=== PATIENT | female | born 1960 | race African-American/Black ===

== ENCOUNTER 2016-09-27 11:42 | Emergency (ER) | payer BC, OTHER ==
--- NOTE | 2016-09-27 13:24 | RAD ---
EXAM: RIGHT SHOULDER 3 VIEWS: HISTORY: Pain. COMPARISON: None. FINDINGS: Glenohumeral joint space is preserved. Increased density projecting over the rotator cuff tendon in sertion site. Correlate for calcification of the rotator cuff. Visualized right ribs are unremarka ble. IMPRESSION: Chronic changes. POS: [facility]
== END 2016-09-27 13:15 | disposition home or self-care (01) ==
LOC: MADERS 11:42
DX: M75.31 Calcific tendinitis of right shoulder (principal); E78.5 Hyperlipidemia, unspecified; E78.00 Pure hypercholesterolemia, unspecified; I10 Essential (primary) hypertension; E11.9 Type 2 diabetes mellitus without complications; E66.9 Obesity, unspecified; Z79.82 Long term (current) use of aspirin; Z79.899 Other long term (current) drug therapy
CPT/HCPCS: 99283

== ENCOUNTER 2017-04-01 12:13 | Emergency (ER) | payer BC ==
[2017-04-01] MEDS ORDERED: traMADol HCl 50 MG TAB ONE (12:57)
== END 2017-04-01 14:07 | disposition home or self-care (01) ==
LOC: MADERS 12:13
DX: I10 Essential (primary) hypertension (principal); E66.01 Morbid (severe) obesity due to excess calories; E11.9 Type 2 diabetes mellitus without complications; Z79.4 Long term (current) use of insulin; Z79.82 Long term (current) use of aspirin; Z79.899 Other long term (current) drug therapy
CPT/HCPCS: 99283

== ENCOUNTER 2018-05-24 22:42 | Emergency (ER) | payer BC ==
[2018-05-24] MEDS ORDERED: Cephalexin 500 MG CAP ONE (23:17)
== END 2018-05-24 23:25 | disposition home or self-care (01) ==
LOC: MADERS 22:42
DX: L30.9 Dermatitis, unspecified (principal); E11.9 Type 2 diabetes mellitus without complications; E66.9 Obesity, unspecified; I10 Essential (primary) hypertension; Z79.899 Other long term (current) drug therapy
CPT/HCPCS: 99282

== ENCOUNTER 2018-06-28 18:44 | Emergency (ER) | payer BC ==
--- NOTE | 2018-06-28 19:36 | RAD ---
RADIOGRAPH LEFT FOREARM 2 VIEWS: 06/28/18 HISTORY: 57-year-old female with traumatic forearm pain after fall. FINDINGS: There is no fracture of the radius or ulna. IMPRESSION: Negative. POS: [facility]
--- NOTE | 2018-06-28 20:34 | RAD ---
RADIOGRAPH LEFT WRIST THREE VIEWS: 06/28/18 HISTORY: 57-year-old female with traumatic left wrist pain after fall. FINDINGS: No fracture is identified. If there is snuff box tenderness that suggests an occult scaphoid fracture , then the general recommendation is immobilization and followup imaging in 5 to 10 days. Alignment i s normal. Bony excrescence arising from the dorsum of proximal carpal row, incompletely imaged. IMPRESSION: No fracture identified. POS: [facility]
== END 2018-06-28 19:42 | disposition home or self-care (01) ==
LOC: MADERS 18:44
DX: S63.502A Unspecified sprain of left wrist, initial encounter (principal); I10 Essential (primary) hypertension; E78.00 Pure hypercholesterolemia, unspecified; E66.9 Obesity, unspecified; Z79.899 Other long term (current) drug therapy; W01.0XXA Fall on same level from slipping, tripping and stumbling without subsequent striking against object, initial encounter

== ENCOUNTER 2018-08-20 17:05 | Emergency (ER) | payer BC ==
[~2018-08-20 17:05] MED LIST: cloNIDine 0.1 MG TAB ONE
--- NOTE | 2018-08-20 18:57 | RAD ---
RIGHT HAND THREE VIEWS: 08/20/18 INDICATION: Right hand pain. FINDINGS: No acute fracture or subluxation is evident. No radiopaque foreign body is noted. IMPRESSION: No acute osseous abnormality. POS: [facility]
== END 2018-08-20 20:23 | disposition home or self-care (01) ==
LOC: MADERS 17:05
DX: S66.911A Strain of unspecified muscle, fascia and tendon at wrist and hand level, right hand, initial encounter (principal); S76.111A Strain of right quadriceps muscle, fascia and tendon, initial encounter; I10 Essential (primary) hypertension; E78.00 Pure hypercholesterolemia, unspecified; E11.9 Type 2 diabetes mellitus without complications; E66.9 Obesity, unspecified; Z79.4 Long term (current) use of insulin; Z79.899 Other long term (current) drug therapy; V89.9XXA Person injured in unspecified vehicle accident, initial encounter

== ENCOUNTER 2018-10-17 18:35 | Emergency (ER) | payer BC ==
[2018-10-17] MEDS ORDERED: Enoxaparin Sodium 60 MG/0.6 ML SYRINGE ONE (19:09)
[2018-10-17] MEDS ORDERED: Enoxaparin Sodium 80 MG/0.8 ML SYRINGE ONE (19:09)
[2018-10-17] MEDS ORDERED: Enoxaparin Sodium 30 MG/0.3 ML SYRINGE ONE (19:09)
[2018-10-17] MEDS ORDERED: Sodium Chloride 0.9% 100 ML ONE (19:10)
[2018-10-17] MEDS ORDERED: Piperacillin/Tazobactam 3.375 GM VIAL ONE (19:10)
[2018-10-17 19:13] LABS: Bilirubin Moderate (Negative); Blood, Urine Negative (Negative); Clarity Slightly Cloudy (Clear); Glucose, Urine (Dipstick) Negative (Negative); Leukocyte Negative (Negative); Nitrite Negative (Negative); Protein, Urine (Dipstick) 100 mg/dL (Neg-Trace); Specific Gravity, Urine 1.025 (1.005-1.030); Urobilinogen > or = 8.0 mg/dL (0.2-1.0)
[2018-10-17 19:19] LABS: Prothrombin Time 13.2 SEC (12.0-14.7)
[2018-10-17 19:20] LABS: PTT 28.1 SEC (22.9-36.1)
[2018-10-17 19:30] LABS: ALT (SGPT) 28 U/L (8-55); AST (SGOT) 30 U/L (5-34); Albumin 3.5 g/dL (3.5-5.0); Alkaline Phosphatase 117 U/L (40-150); Anion Gap 14 mmol/L (10-20); BUN (Urea Nitrogen) 19 mg/dL (9.8-20.1); Bilirubin, Total 1.2 mg/dL (0.2-1.2); Calc. Creatinine Clearance 0 mL/min (70-130); Calcium 9.8 mg/dL (7.8-10.44); Carbon Dioxide 27 mmol/L (22-29); Chloride 105 mmol/L (98-107); Estimated GFR-MDRD 83; Globulin 4.6 g/dL (2.4-3.5); Glucose 181 mg/dL (70-105); Potassium 4.1 mmol/L (3.5-5.1); Protein, Total 8.1 g/dL (6.0-8.3); Sodium 142 mmol/L (136-145)
[2018-10-17 19:31] LABS: Bacteria/HPF Rare-Few HPF (None Seen); RBC/HPF 0-3 HPF (0-3); WBC/HPF 0-3 HPF (0-3)
[2018-10-17 19:35] LABS: #Basophils 0.1 thou/uL (0.0-0.2); #Eosinphils 0.1 thou/uL (0.0-0.7); #Lymphocytes 2.3 thou/uL (1.20-3.40); #Monocytes 0.9 thou/uL (0.11-0.59); #Neutrophils 10.3 thou/uL (1.40-6.50); %Basophils 0.6 % (0.0-1.0); %Lymphocytes 16.8 % (21.0-51.0); %Monocytes 6.2 % (0.0-10.0); %Neutrophils 75.4 % (42.0-75.0); Anisocytosis SLIGHT = 6-15 cells (100X) (0-5/hpf); Hemoglobin 12.2 g/dL (12.0-16.0); Hypochromia SLIGHT = 6-15 cells (100X) (0-5/hpf); MDiff Complete? YES; Mean Corpuscular HGB CONC 30.1 g/dL (32.0-36.0); Mean Corpuscular Hemoglobin 23.7 pg (27.0-31.0); Mean Corpuscular Volume 78.9 fL (78.0-98.0); Mean Platelet Volume 11.2 fL (7.4-10.4); Platelet Count 168 thou/uL (130-400); Platelet Morphology Comment Appears Adequate; RBC Distribution Width 15.4 % (11.5-14.5); Red Blood Cell (RBC) Count 5.14 mill/uL (4.20-5.40); White Blood Cell (WBC) Count 13.7 thou/uL (4.8-10.8)
[2018-10-17] MEDS ORDERED: Sodium Chloride 0.9% 250 ML 250 ML ONE (19:49)
== END 2018-10-17 20:42 | disposition short-term general hospital (02) ==
LOC: MADERS 18:35
DX: L03.115 Cellulitis of right lower limb (principal); E11.9 Type 2 diabetes mellitus without complications; I10 Essential (primary) hypertension; E66.9 Obesity, unspecified; Z79.899 Other long term (current) drug therapy; Z79.4 Long term (current) use of insulin; Z79.01 Long term (current) use of anticoagulants
CPT/HCPCS: 36415; 80053; 81003; 81015; 83605; 85025; 85610; 85730; 87040; 96365; 96372; 96375; J1650; J2543; J3370; J3490; J7050

== ENCOUNTER 2020-03-16 14:24 | Emergency (ER) | payer SELFPAY ==
[2020-03-16] MEDS ORDERED: Sodium Chloride 0.9% 100 ML ONE (15:36)
[2020-03-16] MEDS ORDERED: cefTRIAXone\\ROCEPHIN 2 GM VIAL ONE (15:36)
[2020-03-16] MEDS ORDERED: Sodium Chloride 0.9% 250 ML 250 ML ONE (15:36)
[2020-03-16] MEDS ORDERED: Ibuprofen 400 MG TAB ONE (15:36)
[2020-03-16 15:46] LABS: Bilirubin Small (Negative); Blood, Urine Trace (Negative); Clarity Slightly Cloudy (Clear); Glucose, Urine (Dipstick) Negative (Negative); Ketone, Urine Negative (Negative); Leukocyte Negative (Negative); Nitrite Negative (Negative); Protein, Urine (Dipstick) 30 mg/dL (Neg-Trace); Specific Gravity, Urine 1.015 (1.005-1.030); Urobilinogen > or = 8.0 mg/dL (Less than 2); pH, Urine 7.5 (5.0-9.0)
[2020-03-16 15:49] LABS: ALT (SGPT) 22 U/L (8-55); AST (SGOT) 22 U/L (5-34); Albumin 3.6 g/dL (3.5-5.0); Alkaline Phosphatase 104 U/L (40-110); Anion Gap 18 mmol/L (10-20); BUN (Urea Nitrogen) 15 mg/dL (9.8-20.1); Bilirubin, Total 1.4 mg/dL (0.2-1.2); Calc. Creatinine Clearance 0 mL/min (70-130); Carbon Dioxide 28 mmol/L (22-29); Chloride 101 mmol/L (98-107); Estimated GFR-MDRD 72; Globulin 4.3 g/dL (2.4-3.5); Glucose 130 mg/dL (70-105); Potassium 3.7 mmol/L (3.5-5.1); Protein, Total 7.9 g/dL (6.0-8.3); Sodium 143 mmol/L (136-145)
[2020-03-16 15:52] LABS: Anisocytosis SLIGHT = 6-15 cells (100X) (0-5/hpf); Band 25 % (5-11); Hemoglobin 12.1 g/dL (12.0-16.0); Hypochromia MODERATE=16-30 cells (100X) (0-5/hpf); Lymphocytes 2 % (21-51); MDiff Complete? YES; Mean Corpuscular HGB CONC 29.4 g/dL (32.0-36.0); Mean Corpuscular Hemoglobin 23.5 pg (27.0-31.0); Mean Corpuscular Volume 79.8 fL (78.0-98.0); Mean Platelet Volume 10.8 fL (7.4-10.4); Monocytes 2 % (0-10); Neutrophil 71 % (42-75); Platelet Count 213 thou/uL (130-400); Platelet Morphology Comment Appears Adequate; RBC Distribution Width 15.5 % (11.5-14.5); Red Blood Cell (RBC) Count 5.15 mill/uL (4.20-5.40); White Blood Cell (WBC) Count 33.3 thou/uL (4.8-10.8)
[2020-03-16 15:55] LABS: Bacteria/HPF 1+ HPF (None Seen); RBC/HPF 0-3 HPF (0-3); WBC/HPF 0-3 HPF (0-3)
[2020-03-16] MEDS ORDERED: Sodium Chloride 0.9% 1,000 ML ONE (15:55)
--- NOTE | 2020-03-16 16:03 | RAD ---
PA AND LATERAL CHEST: 03/16/20 HISTORY: Cough, fever. Heart size is enlarged. There are atherosclerotic changes of the aorta. The lungs are clear of any fo jaja infiltrative process. Subtle ground glass infiltrates would be difficult to exclude in this patie nt. IMPRESSION: Cardiomegaly. No definite acute process. POS: [facility]
[2020-03-16 16:18] LABS: CKMB 2.5 ng/mL (0-6.6)
[2020-03-16] MEDS ORDERED: Aspirin Chewable 81 MG TAB ONE (16:25)
== END 2020-03-16 17:20 | disposition short-term general hospital (02) ==
LOC: MADERS 14:24
DX: A41.9 Sepsis, unspecified organism (principal); R65.20 Severe sepsis without septic shock; R79.89 Other specified abnormal findings of blood chemistry; R60.0 Localized edema; E11.9 Type 2 diabetes mellitus without complications; E78.5 Hyperlipidemia, unspecified; E78.00 Pure hypercholesterolemia, unspecified; E66.9 Obesity, unspecified; I10 Essential (primary) hypertension; Z79.4 Long term (current) use of insulin; Z79.82 Long term (current) use of aspirin; Z79.899 Other long term (current) drug therapy; W17.89XA Other fall from one level to another, initial encounter
CPT/HCPCS: 36416; 71046; 80053; 81003; 81015; 82553; 83605; 84443; 84484; 85025; 87040; 93005; 96361; 96365; 36415-59; J0696; J3370; J3490; J7050

== ENCOUNTER 2020-10-05 19:28 | Emergency (ER) | payer OTHER, SELFPAY | END 2020-10-05 20:00 | disposition home or self-care (01) | LOC: MADERS 19:28 | DX: M25.551 Pain in right hip (principal); M79.10 Myalgia, unspecified site; M79.651 Pain in right thigh; E11.9 Type 2 diabetes mellitus without complications; E78.5 Hyperlipidemia, unspecified; E78.00 Pure hypercholesterolemia, unspecified; I10 Essential (primary) hypertension; Z79.899 Other long term (current) drug therapy; Z79.4 Long term (current) use of insulin; Z79.82 Long term (current) use of aspirin | CPT/HCPCS: 99283 ==

== ENCOUNTER 2021-10-09 18:50 | Emergency (ER) | payer BC, SELFPAY ==
[2021-10-09] MEDS ORDERED: Nitroglycerin 0.4 MG TAB 1 EACH ONE (19:29)
[2021-10-09] MEDS ORDERED: Aspirin Chewable 81 MG TAB ONE (19:29)
[2021-10-09 20:11] LABS: #Basophils 0.1 thou/uL (0.0-0.2); #Eosinphils 0.2 thou/uL (0.0-0.7); #Monocytes 0.5 thou/uL (0.11-0.59); #Neutrophils 7.7 thou/uL (1.40-6.50); %Basophils 0.6 % (0.0-1.0); %Eosinophils 2.1 % (0.0-10.0); %Lymphocytes 26.1 % (21.0-51.0); %Monocytes 4.5 % (0.0-10.0); %Neutrophils 66.7 % (42.0-75.0); Hemoglobin 12.4 g/dL (12.0-16.0); Hypochromia SLIGHT = 6-15 cells (100X) (0-5/hpf); Large Platelets SLIGHT; MDiff Complete? YES; Mean Corpuscular HGB CONC 29.8 g/dL (32.0-36.0); Mean Corpuscular Hemoglobin 23.8 pg (27.0-31.0); Mean Corpuscular Volume 79.9 fL (78.0-98.0); Mean Platelet Volume 12.8 fL (7.4-10.4); Microcytosis SLIGHT = 6-15 cells (100X) (0-5/hpf); Platelet Count 191 thou/uL (130-400); Platelet Morphology Comment Appears Adequate; RBC Distribution Width 15.6 % (11.5-14.5); Red Blood Cell (RBC) Count 5.21 mill/uL (4.20-5.40); White Blood Cell (WBC) Count 11.6 thou/uL (4.8-10.8)
[2021-10-09 20:18] LABS: ALT (SGPT) 11 U/L (8-55); AST (SGOT) 14 U/L (5-34); Albumin 3.8 g/dL (3.5-5.0); Alkaline Phosphatase 132 U/L (40-110); Anion Gap 20 mmol/L (10-20); BUN (Urea Nitrogen) 14 mg/dL (9.8-20.1); Bilirubin, Total 0.5 mg/dL (0.2-1.2); Calc. Creatinine Clearance 0 mL/min (70-130); Calcium 8.8 mg/dL (7.8-10.44); Carbon Dioxide 26 mmol/L (22-29); Chloride 104 mmol/L (98-107); Globulin 4.2 g/dL (2.4-3.5); Glucose 124 mg/dL (70-105); Potassium 3.7 mmol/L (3.5-5.1); Sodium 146 mmol/L (136-145)
[2021-10-09] MEDS ORDERED: Enoxaparin Sodium 100 MG/ML SYRINGE ONE (20:28)
[2021-10-09 20:35] LABS: CKMB 2.2 ng/mL (0-6.6)
== END 2021-10-09 22:19 | disposition short-term general hospital (02) ==
LOC: MADERS 18:50
DX: I24.9 Acute ischemic heart disease, unspecified (principal); E11.42 Type 2 diabetes mellitus with diabetic polyneuropathy; E66.9 Obesity, unspecified; E78.5 Hyperlipidemia, unspecified; E78.00 Pure hypercholesterolemia, unspecified; I10 Essential (primary) hypertension; Z79.82 Long term (current) use of aspirin; Z79.4 Long term (current) use of insulin; Z79.899 Other long term (current) drug therapy
CPT/HCPCS: 71045; 80053; 82553; 83880; 84484; 85025; 93005; 94760; 96372; J1650

== ENCOUNTER 2021-11-21 09:30 | Outpatient (CLI) | payer BC ==
[2021-11-21 10:10] LABS: ALT (SGPT) 15 U/L (8-55); AST (SGOT) 11 U/L (5-34); Albumin 3.6 g/dL (3.5-5.0); Alkaline Phosphatase 123 U/L (40-110); Anion Gap 17 mmol/L (10-20); BUN (Urea Nitrogen) 13 mg/dL (9.8-20.1); Bilirubin, Total 0.5 mg/dL (0.2-1.2); Calc. Creatinine Clearance 0 mL/min (70-130); Calcium 9.2 mg/dL (7.8-10.44); Carbon Dioxide 28 mmol/L (22-29); Chloride 104 mmol/L (98-107); Globulin 4.3 g/dL (2.4-3.5); Glucose 131 mg/dL (70-105); Potassium 3.8 mmol/L (3.5-5.1); Protein, Total 7.9 g/dL (6.0-8.3); Sodium 145 mmol/L (136-145)
[2021-11-21 16:30] LABS: Hemoglobin A1c 6.6 % (4.0-6.0)
== END 2021-11-21 09:31 | disposition home or self-care (01) ==
LOC: MADLAB 09:30
PROVIDERS: ATTEND Family Medicine
DX: I11.9 Hypertensive heart disease without heart failure (principal); E11.40 Type 2 diabetes mellitus with diabetic neuropathy, unspecified
CPT/HCPCS: 36415; 80053; 83036

== ENCOUNTER 2022-02-23 10:46 | Outpatient (CLI) | payer BC ==
[2022-02-23 11:39] LABS: ALT (SGPT) 12 U/L (8-55); AST (SGOT) 11 U/L (5-34); Albumin 3.6 g/dL (3.5-5.0); Alkaline Phosphatase 129 U/L (40-110); Anion Gap 13 mmol/L (10-20); BUN (Urea Nitrogen) 13 mg/dL (9.8-20.1); Bilirubin, Total 0.6 mg/dL (0.2-1.2); Calc. Creatinine Clearance 0 mL/min (70-130); Calcium 9.2 mg/dL (7.8-10.44); Carbon Dioxide 28 mmol/L (22-29); Cardiac Risk 2.2 (Less than 4.5); Chloride 107 mmol/L (98-107); Cholesterol 98 mg/dl (< 200 Desired); Estimated GFR 86; Globulin 4.3 g/dL (2.4-3.5); Glucose 148 mg/dL (70-105); HDL Cholesterol 44 mg/dL (>60 Neg Risk); LDL Cholesterol, Calculated 43 mg/dL; Potassium 4.6 mmol/L (3.5-5.1); Protein, Total 7.9 g/dL (6.0-8.3); Sodium 143 mmol/L (136-145); Triglycerides 56 mg/dL (Less than 150)
== END 2022-02-23 10:47 | disposition home or self-care (01) ==
LOC: MADLABBHPM 10:46
PROVIDERS: ATTEND Family Medicine
DX: E78.2 Mixed hyperlipidemia (principal)
CPT/HCPCS: 80053; 80061; 83036

== ENCOUNTER 2022-09-22 16:43 | Emergency (ER) | payer OTHER ==
[2022-09-22] MEDS ORDERED: Lidocaine Viscous Sol 2% 15 ml UD Cup ONE (17:19)
== END 2022-09-22 18:54 | disposition home or self-care (01) ==
LOC: MADERS 16:43
DX: J02.9 Acute pharyngitis, unspecified (principal); E78.00 Pure hypercholesterolemia, unspecified; E66.9 Obesity, unspecified; E11.22 Type 2 diabetes mellitus with diabetic chronic kidney disease; I12.9 Hypertensive chronic kidney disease with stage 1 through stage 4 chronic kidney disease, or unspecified chronic kidney disease; N18.9 Chronic kidney disease, unspecified; Z79.4 Long term (current) use of insulin; Z79.899 Other long term (current) drug therapy; Z79.84 Long term (current) use of oral hypoglycemic drugs; E05.90 Thyrotoxicosis, unspecified without thyrotoxic crisis or storm
CPT/HCPCS: 87081; 87430; 87804; 99283

== ENCOUNTER 2023-06-07 20:29 | Emergency (ER) | payer OTHER, SELFPAY ==
[2023-06-07] MEDS ORDERED: Furosemide 40 MG/4 ML VIAL ONE (21:36)
[2023-06-07] MEDS ORDERED: cloNIDine 0.1 MG TAB ONE (21:36)
[2023-06-07 22:03] LABS: Troponin I 0.057 ng/mL (< 0.028)
[2023-06-07 22:04] LABS: Anion Gap 15 mmol/L (10-20); BUN (Urea Nitrogen) 13 mg/dL (9.8-20.1); Calc. Creatinine Clearance 0 mL/min (70-130); Calcium 8.9 mg/dL (7.8-10.44); Carbon Dioxide 29 mmol/L (22-29); Chloride 104 mmol/L (98-107); Estimated GFR 80; Glucose 129 mg/dL (70-105); Potassium 4.3 mmol/L (3.5-5.1); Sodium 144 mmol/L (136-145)
[2023-06-07 22:20] LABS: #Basophils 0.1 thou/uL (0.0-0.2); #Eosinphils 0.6 thou/uL (0.0-0.7); #Lymphocytes 1.6 thou/uL (1.20-3.40); #Monocytes 0.5 thou/uL (0.11-0.59); #Neutrophils 8.3 thou/uL (1.40-6.50); %Basophils 0.7 % (0.0-1.0); %Eosinophils 5.2 % (0.0-10.0); %Lymphocytes 14.7 % (21.0-51.0); %Monocytes 4.6 % (0.0-10.0); %Neutrophils 74.8 % (42.0-75.0); Hematocrit 43.8 % (36.0-47.0); Hemoglobin 12.7 g/dL (12.0-16.0); Mean Corpuscular Hemoglobin 24.3 pg (27.0-31.0); Mean Corpuscular Volume 83.9 fl (78.0-98.0); Mean Platelet Volume 13.4 fL (7.4-10.4); Platelet Adequacy Comment Appears Adequate; Platelet Count 130 10x3/uL (130-400); RBC Distribution Width 16.1 % (11.5-14.5); Red Blood Cell (RBC) Count 5.22 mill/uL (4.20-5.40)
[2023-06-07] MEDS ORDERED: Aspirin Chewable 81 MG TAB ONE (22:29)
[2023-06-07] MEDS ORDERED: hydrALAZINE 20 MG/ML VIAL ONE (22:34)
== END 2023-06-08 01:09 | disposition short-term general hospital (02) ==
LOC: MADERS 20:29
DX: I13.0 Hypertensive heart and chronic kidney disease with heart failure and stage 1 through stage 4 chronic kidney disease, or unspecified chronic kidney disease (principal); E11.22 Type 2 diabetes mellitus with diabetic chronic kidney disease; N18.9 Chronic kidney disease, unspecified; I50.9 Heart failure, unspecified; I21.4 Non-ST elevation (NSTEMI) myocardial infarction; E11.42 Type 2 diabetes mellitus with diabetic polyneuropathy; E78.00 Pure hypercholesterolemia, unspecified; E66.9 Obesity, unspecified; Z79.4 Long term (current) use of insulin; Z79.84 Long term (current) use of oral hypoglycemic drugs; Z79.899 Other long term (current) drug therapy
CPT/HCPCS: 71045; 80048; 83880; 84484; 85025; 85379; 87804; 93005; 96374; 96375; J0360; J1940

== ENCOUNTER 2023-10-30 15:01 | Emergency (ER) | payer OTHER ==
[2023-10-30] MEDS ORDERED: Acetaminophen 500 MG TAB ONE (15:21)
[2023-10-30] MEDS ORDERED: Azithromycin 250 MG TAB ONE (16:03)
== END 2023-10-30 16:06 | disposition home or self-care (01) ==
LOC: MADERS 15:01
DX: J02.0 Streptococcal pharyngitis (principal); E11.51 Type 2 diabetes mellitus with diabetic peripheral angiopathy without gangrene; I11.0 Hypertensive heart disease with heart failure; I50.9 Heart failure, unspecified; E11.42 Type 2 diabetes mellitus with diabetic polyneuropathy; Z79.4 Long term (current) use of insulin; Z79.899 Other long term (current) drug therapy
CPT/HCPCS: 71045; 87430

== ENCOUNTER 2025-01-15 08:09 | Outpatient (CLI) | payer OTHER ==
[2025-01-15 09:19] LABS: Anion Gap 14 mmol/L (10-20); BUN (Urea Nitrogen) 25 mg/dL (9.8-20.1); Calc. Creatinine Clearance 0 mL/min (70-130); Calcium 9.8 mg/dL (7.8-10.44); Carbon Dioxide 28 mmol/L (23-31); Chloride 105 mmol/L (98-107); Glucose 237 mg/dL (80-115); Potassium 4.3 mmol/L (3.5-5.1); Sodium 143 mmol/L (136-145)
[2025-01-26 12:27] LABS: Dopamine 15.4; Epinephrine 48.7; Norepinephrine 515
== END 2025-01-15 08:10 | disposition home or self-care (01) ==
LOC: MADLAB 08:09
PROVIDERS: ATTEND Internal Medicine
DX: I86.8 Varicose veins of other specified sites (principal); I10 Essential (primary) hypertension
CPT/HCPCS: 36415; 80048; 82088; 82384; 83835; 84244

== ENCOUNTER 2025-04-24 09:49 | Outpatient (CLI) | payer OTHER ==
[2025-04-24 10:34] LABS: Glucose, Urine (Dipstick) 500 mg/dL (Negative); Leukocyte Negative (Negative); Protein, Urine (Dipstick) Negative (Neg-Trace); Specific Gravity, Urine Greater/Equal 1.030 (1.005-1.030)
[2025-04-24 10:41] LABS: RBC/HPF 0-3 HPF (0-3)
[2025-04-24 10:42] LABS: Bacteria/HPF Rare-Few HPF (None Seen); WBC/HPF 0-3 HPF (0-3)
[2025-04-24 10:45] LABS: Albumin 3.0 g/dL (3.1-4.5); Anion Gap 14 mmol/L (10-20); BUN (Urea Nitrogen) 24 mg/dL (9.8-20.1); Calc. Creatinine Clearance 0 mL/min (70-130); Calcium 9.1 mg/dL (7.8-10.44); Carbon Dioxide 26 mmol/L (23-31); Chloride 106 mmol/L (98-107); Glucose 181 mg/dL (80-115); Potassium 4.2 mmol/L (3.5-5.1); Sodium 142 mmol/L (136-145)
[2025-04-24 10:50] LABS: Hematocrit 43.7 % (36.0-47.0); Hemoglobin 12.4 g/dL (12.0-16.0); Mean Corpuscular Hemoglobin 25.0 pg (27.0-31.0); Mean Corpuscular Volume 88.0 fl (78.0-98.0); Platelet Count 174 10x3/uL (130-400); Red Blood Cell (RBC) Count 4.97 mill/uL (4.20-5.40); White Blood Cell (WBC) Count 10.0 10x3/uL (4.8-10.8)
[2025-04-24 11:03] LABS: Anisocytosis SLIGHT = 6-15 cells (100X) (0-5/hpf)
[2025-04-24 11:04] LABS: MDiff Complete? YES; Platelet Adequacy Comment Appears Adequate
[2025-04-24 17:24] LABS: Protein, Urine Random Quant Less than 10 mg/dL (1-14)
== END 2025-04-24 09:50 | disposition home or self-care (01) ==
LOC: MADLAB 09:49
PROVIDERS: ATTEND Internal Medicine Nephrology
DX: I10 Essential (primary) hypertension (principal)
CPT/HCPCS: 36415; 80048; 81001; 82040; 82570; 83970; 84100; 84156; 85025